=== PATIENT | male | born 1960 | race Caucasian/White ===

== ENCOUNTER 2023-06-04 15:21 | Emergency (ER) | payer OTHER ==
[2023-06-04 15:27] VITALS: BP 159/96; PULSE 91; RESP 19; TEMP 98.6; BMI 21.5
[2023-06-04] MEDS ORDERED: DIPHTH,PERTUSS(ACELL),TET 0.5 ML DISP.SYRIN IM ONE ×2 (16:02→16:12)
== END 2023-06-04 18:03 | disposition home or self-care (01) ==
LOC: JERFT 15:21
PROC: 0HQGXZZ Repair Left Hand Skin, External Approach (ICD-10-PCS; principal; 2023-06-04)
PROC: 2W3KX1Z Immobilization of Left Finger using Splint (ICD-10-PCS; 2023-06-04)
PROC: 3E0234Z Introduction of Serum, Toxoid and Vaccine into Muscle, Percutaneous Approach (ICD-10-PCS; 2023-06-04)
DX: S62.667A Nondisplaced fracture of distal phalanx of left little finger, initial encounter for closed fracture (principal); S61.217A Laceration without foreign body of left little finger without damage to nail, initial encounter; W29.0XXA Contact with powered kitchen appliance, initial encounter; Y99.0 Civilian activity done for income or pay
CPT/HCPCS: 73140-TC-LT-FY; 90715; 99283-25

== ENCOUNTER 2023-06-11 10:30 | Emergency (ER) | payer OTHER ==
[2023-06-11 10:42] VITALS: BP 165/100; PULSE 88; RESP 18; TEMP 97.9; BMI 21.5
== END 2023-06-11 11:57 | disposition home or self-care (01) ==
LOC: JER 10:30 → JERFT 10:30
DX: Z48.02 Encounter for removal of sutures (principal); Z48.00 Encounter for change or removal of nonsurgical wound dressing
CPT/HCPCS: 99282-25